=== PATIENT | male | born 1950 | race Caucasian/White ===

== ENCOUNTER 2018-12-28 14:43 | Emergency (ER) | payer BC, MEDICAID ==
[~2018-12-28] VITALS: Ht 165.1 cm; Wt 68.0 kg
--- NOTE | 2018-12-28 15:03 | NUR ---
EKG not done. Dr Alegria said that he is cancelling the test.
[2018-12-28 15:15] LABS: BASOPHILS % (AUTO) 0.2 % (0.0-2.0); HEMATOCRIT 44.8 % (36.7-47.1); HEMOGLOBIN 14.7 g/dL (12.5-16.3); LYMPHOCYTES # (AUTO) 0.5 K/uL (20.0-40.0); LYMPHOCYTES % (AUTO) 2.6 % (20.5-51.5); MEAN CORPUSCULAR HEMOGLOBIN 27.5 uug (23.8-33.4); MEAN CORPUSCULAR HGB CONC 33 g/dL (32.5-36.3); MEAN CORPUSCULAR VOLUME 83.7 fL (73.0-96.2); MONOCYTES # (AUTO) 1.4 K/uL (2.0-10.0); MONOCYTES % (AUTO) 7.9 % (0.0-11.0); NEUTROPHILS # (AUTO) 15.8 K/uL (1.8-8.9); NEUTROPHILS % (AUTO) 89.3 % (38.5-71.5); PLATELET COUNT (AUTO) 202 K/uL (152-348); RED BLOOD CELL COUNT(AUTO) 5.35 MIL/uL (4.06-5.63); WHITE BLOOD COUNT (AUTO) 17.7 K/uL (3.6-10.2)
[2018-12-28] MEDS ORDERED: IBUPROFEN 600 MG TABLET PO ONE (15:15)
[2018-12-28] MEDS ORDERED: IV NS 1000 ML 1,000 ML IV ONE (15:15)
[2018-12-28] MEDS ORDERED: ACETAMINOPHEN ES 500 MG TABLET PO ONE (15:15)
[2018-12-28] MEDS ORDERED: ACETAMINOPHEN ES 500 MG TABLET ONE (15:18)
[2018-12-28] MEDS ORDERED: IBUPROFEN 600 MG TABLET ONE (15:18)
[2018-12-28 15:24] LABS: *BILIRUBIN,URIN 1+ (NEGATIVE); *BLOOD, URINE 2+ (NEGATIVE); *COLOR,URINE AMBER (YELLOW); *KETONES,URINE 2+ (NEGATIVE); NITRITE, URINE POSITIVE (NEGATIVE); PH,URINE 5.5 (5.0-8.0); UGLUCOSE NEGATIVE (NEGATIVE)
[2018-12-28 15:25] LABS: CREATININE 0.9 mg/dL (0.6-1.3); POTASSIUM 3.8 mmol/L (3.5-5.1)
[2018-12-28 15:30] LABS: *CLARITY,URINE CLOUDY (CLEAR); LEUKOCYTE ESTERASE ,URINE 2+ (NEGATIVE)
[2018-12-28 15:30] LABS: BILIRUBIN,DIRECT 0.4 mg/dL (0.0-0.2); BILIRUBIN,TOTAL 1.4 mg/dL (0.2-1.0); TOTAL PROTEIN, SERUM 7.5 g/dL (6.4-8.2)
[2018-12-28 15:32] LABS: BACTERIA,URINE MANY /HPF (NONE SEEN); MUCUS,URINE MANY /LPF (0-FEW); WBC,URINE 80-100 /HPF (0-3)
[2018-12-28] MEDS ORDERED: CEFTRIAXONE 1 G VIAL ONE (15:58)
[2018-12-28] MEDS ORDERED: CEFTRIAXONE 1 G in IV DEXTROSE 5% 50 ML IV ONE (16:00)
--- NOTE | 2018-12-28 16:54 | NUR ---
IV removed. Catheter intact and site benign. Pressure and 4x4 gauze applied to site. No bleeding noted. Patient discharged to home in stable conditon & brisk steady gait. Written and verbal after care instructions given. Patient verbalizes understanding of instructions.
== END 2018-12-28 16:55 | disposition home or self-care (01) ==
LOC: ER 14:44
DX: N39.0 Urinary tract infection, site not specified (principal); F17.200 Nicotine dependence, unspecified, uncomplicated
CPT/HCPCS: 36415; 80048; 80076; 81000; 81001; 83605; 84484; 85025; 87040 ×2; 87077; 87086; 87186; 93005; 96365; 99284; J0696; 70030-TC; A4663; A9150; J7030

== ENCOUNTER 2019-01-26 18:10 | Emergency (ER) | payer BC, OTHER ==
[~2019-01-26] VITALS: Ht 167.6 cm; Wt 68.0 kg
--- NOTE | 2019-01-26 18:39 | NUR ---
68 years old male alert, oriented x4 walking to er c/o pain burning with urination x5 days.
--- NOTE | 2019-01-26 18:44 | NUR ---
urine collected/sent.
[2019-01-26 19:02] LABS: *BILIRUBIN,URIN NEGATIVE (NEGATIVE); *BLOOD, URINE 3+ (NEGATIVE); *CLARITY,URINE CLOUDY (CLEAR); *COLOR,URINE YELLOW (YELLOW); *KETONES,URINE NEGATIVE (NEGATIVE); *UROBILINOGEN,URINE 0.2 E.U./dl (NORMAL); LEUKOCYTE ESTERASE ,URINE 2+ (NEGATIVE); NITRITE, URINE NEGATIVE (NEGATIVE); PH,URINE 5.5 (5.0-8.0); UGLUCOSE NEGATIVE (NEGATIVE)
[2019-01-26 19:11] LABS: BACTERIA,URINE FEW /HPF (NONE SEEN); MUCUS,URINE MODERATE /LPF (0-FEW); RBC,URINE 80-100 /HPF (0-3); SQUAMOUS EPITHELIAL CELL,UR FEW /HPF (NONE SEEN); WBC,URINE 80-100 /HPF (0-3)
[2019-01-26] MEDS ORDERED: PHENAZOPYRIDINE HCL 100 MG TABLET ONE (19:13)
[2019-01-26] MEDS ORDERED: ACETAMINOPHEN ES 500 MG TABLET ONE (19:13)
[2019-01-26] MEDS ORDERED: PHENAZOPYRIDINE HCL 100 MG TABLET PO ONE (19:15)
[2019-01-26] MEDS ORDERED: ACETAMINOPHEN ES 500 MG TABLET PO ONE (19:15)
--- NOTE | 2019-01-26 19:15 | NUR ---
ASSUMED CARE OF PATIENT FROM DAY SHIFT RN.
[2019-01-26] MEDS ORDERED: CEphaleXIN 500 MG CAPSULE ONE (19:27)
[2019-01-26] MEDS ORDERED: CEphaleXIN 500 MG CAPSULE PO ONE (19:30)
--- NOTE | 2019-01-26 19:35 | NUR ---
Patient discharged to home in stable conditon. Written and verbal after care instructions given. Patient verbalizes understanding of instructions. Pt ambulated out of the ER with steady gait. All belongings with pt.
[2019-01-26 19:39] VITALS: BP 160/72
== END 2019-01-26 19:35 | disposition home or self-care (01) ==
LOC: ER 18:12
DX: N39.0 Urinary tract infection, site not specified (principal); F17.200 Nicotine dependence, unspecified, uncomplicated
CPT/HCPCS: 87086; A4663; A9150

== ENCOUNTER 2021-06-21 21:52 | Emergency (ER) | payer BC, OTHER ==
[~2021-06-21] VITALS: Ht 167.6 cm; Wt 68.0 kg
--- NOTE | 2021-06-21 21:55 | NUR ---
Juvencio fermin in [facility] - 06/21/21 at 2156 by ADARSH pt placed in room 2a states he has not been able to void in 5 hours. pt a/o
--- NOTE | 2021-06-21 21:56 | NUR ---
pt placed in room 2a states he has not been able to void in 7 hours. pt a/o
[2021-06-21] MEDS ORDERED: LIDOCAINE 2% (UROJET) 10 ML JELLY MM ONE ×2 (22:00→22:10)
[2021-06-21] MEDS ORDERED: NITR-84 PO (22:08)
[2021-06-21 22:15] LABS: HEMATOCRIT 43.9 % (36.7-47.1); MEAN CORPUSCULAR HEMOGLOBIN 28.1 uug (23.8-33.4); MEAN CORPUSCULAR VOLUME 83.5 fL (73.0-96.2); PLATELET COUNT (AUTO) 277 K/uL (152-348)
[2021-06-21] MEDS ORDERED: NITROFURANTOIN/NITROFURAN MAC 100 MG CAPSULE PO ONE ×2 (22:15→22:25)
[2021-06-21 22:20] LABS: CREATININE 0.9 mg/dL (0.6-1.3); POTASSIUM 3.6 mmol/L (3.5-5.1)
--- NOTE | 2021-06-21 22:20 | NUR ---
16 fr f/c inserted, urine sample sent, yellow urine with sediment then appearing pink in color.
[2021-06-21 22:22] LABS: *BILIRUBIN,URIN NEGATIVE (NEGATIVE); *BLOOD, URINE 2+ (NEGATIVE); *CLARITY,URINE CLEAR (CLEAR); *COLOR,URINE YELLOW (YELLOW); *KETONES,URINE NEGATIVE (NEGATIVE); *UROBILINOGEN,URINE 0.2 E.U./dl (NORMAL); LEUKOCYTE ESTERASE ,URINE TRACE (NEGATIVE); NITRITE, URINE NEGATIVE (NEGATIVE); PH,URINE 6.5 (5.0-8.0); UGLUCOSE NEGATIVE (NEGATIVE)
[2021-06-21 22:55] VITALS: BP 160/90
--- NOTE | 2021-06-21 22:55 | NUR ---
Patient discharged to home in stable condition. Written and verbal after care instructions given. Patient verbalizes understanding of instructions. Stressed follow up or return to ER for worsening s/s.
[2021-06-21 23:02] LABS: BACTERIA,URINE FEW /HPF (NONE SEEN); SQUAMOUS EPITHELIAL CELL,UR FEW /HPF (NONE SEEN)
== END 2021-06-21 22:56 | disposition home or self-care (01) ==
LOC: ER 21:54
DX: N40.1 Benign prostatic hyperplasia with lower urinary tract symptoms (principal); R33.8 Other retention of urine; R31.29 Other microscopic hematuria; R03.0 Elevated blood-pressure reading, without diagnosis of hypertension; G40.909 Epilepsy, unspecified, not intractable, without status epilepticus
CPT/HCPCS: 36415; 51702; 85025; 87086; A4663